=== PATIENT | female | born 1985 | race Caucasian/White ===

== ENCOUNTER 2025-09-20 17:51 | Inpatient (IN) | payer MEDICARE, MEDICAID ==
[~2025-09-20] VITALS: Ht 152.4 cm; Wt 60.3 kg
[2025-09-20 18:16] LABS: MEAN PLATELET VOLUME 8.1 FL (7.4-10.4); RED CELL DISTRIBUTION WIDTH 16.5 % (11.5-14.5)
[2025-09-20 18:32] LABS: CREATININE 0.53 MG/DL (0.40-0.90); TOTAL CARBON DIOXIDE 33.0 MMOL/L (24-32); eCRCL 104 ML/MIN; eGFR > 90 ML/MIN
[2025-09-20 18:36] LABS: ETHANOL < 10 MG/DL (<10)
[2025-09-20 19:32] LABS: LEUKOCYTE ESTERASE ,URINE LARGE (Neg); NITRITES, URINE POSITIVE (Neg); OCCULT BLOOD,URINE TRACE-INTACT (Neg); URINE HCG NEGATIVE (NEG)
[2025-09-20 19:33] LABS: UA COLLECTION TYPE VOIDED
[2025-09-20 19:41] LABS: SQUAMOUS EPITHELIAL CELL,UR FEW /LPF (FEW)
[2025-09-20 19:51] LABS: URINE AMPHETAMINE SCREEN NEGATIVE (Neg); URINE BARBITUATE SCREEN NEGATIVE (Neg); URINE BENZODIAZEPINES SCREEN NEGATIVE (Neg); URINE CANNABINOID SCREEN NEGATIVE (Neg); URINE COCAINE SCREEN NEGATIVE (Neg); URINE METHADONE SCREEN NEGATIVE (Neg); URINE OPIATE SCREEN NEGATIVE (Neg); URINE PHENCYCLIDINE SCREEN NEGATIVE (Neg)
--- NOTE | 2025-09-20 19:55 | Physician Documentation ---
History of Present Illness ~ Chief Complaint: 5150 Stated Complaint: Time Seen by MD: 19:54 Primary Medical Doctor: DARRELL Mode of Arrival: Dropped Off HPI Patient presents to the emergency room on a 5150 from [facility]. She reports suicidal ideation and auditory hallucinations. Currently she has no complaints. Medication Reconciliation Allergies: Coded Allergies: No Known Allergies (Unverified , 09/20/25) Review of Systems ROS All review of systems negative except as per HPI Physical Exam Vital Signs: Temperature: 98.3, Source: Oral, Heart Rate: 85, Respiratory Rate: 18, BP: 113/78, Pulse Oximetry: 97, Weight: 62.730 Oxygen Flow Rate: 0 Physical Exam General: Patient is awake, alert, cooperative in no acute distress Head: Normocephalic and atraumatic. Eyes: Conjunctival normal. EOMI. PERRL. ENT: Mucous membranes moist. Neck: Supple, trachea is midline. Chest: Clear to auscultation bilaterally without rales, rhonchi, or wheezes. There is no accessory muscle use or retractions. Cardiac: RRR without murmurs, gallops, or rubs. Psych: Cooperative, good eye contact, good affect Progress Results/Orders Results/Orders Vital Signs 09/20/25 09/20/25 17:53 18:14 Temp 98.3 Pulse 85 Resp 18 B/P (MAP) 113/78 Pulse Ox 97 O2 Flow Rate 0 Laboratory Tests Test 09/20/25 17:52 09/20/25 18:00 09/20/25 19:10 White Blood Count 10.1 Red Blood Count 5.10 Hemoglobin 12.7 Hematocrit 38.3 Mean Corpuscular Volume 75.1 L Mean Corpuscular Hemoglobin 24.9 L Mean Corpuscular Hemoglobin Concent 33.1 Red Cell Distribution Width 16.5 H Platelet Count 493 H Mean Platelet Volume 8.1 Neutrophils (%) (Auto) 57.0 Lymphocytes (%) (Auto) 20.1 L Monocytes (%) (Auto) 7.1 Eosinophils (%) (Auto) 14.9 H Basophils (%) (Auto) 0.9 Neutrophils # (Auto) 5.8 Lymphocytes # (Auto) 2.0 Monocytes # (Auto) 0.7 Eosinophils # (Auto) 1.5 H Basophils # (Auto) 0.1 CBC Comment Differential Total Cells Counted 100 Neutrophils % (Manual) 58.0 Lymphocytes % (Manual) 22.0 Monocytes % (Manual) 7.0 Eosinophils % (Manual) 13.0 H Platelet Estimate Increased Large Platelets Few Red Blood Cell Morphology Perf Basophilic Stippling Anisocytosis 1+ Microcytosis 1+ Elliptocytes Few Acanthocytes Few Sodium Level 142 Potassium Level 3.8 Chloride Level 103 Carbon Dioxide Level 33.0 H Anion Gap 6 L Blood Urea Nitrogen 6 L Creatinine 0.53 Estimated GFR/1.73 m2 > 90 BUN/Creatinine Ratio 11.3 Glucose Level 92 Calcium Level 9.3 Albumin 4.0 Thyroid Stimulating Hormone (TSH) 2.45 Chemistry Comments Ethyl Alcohol Level < 10 SARS-CoV-2 Antigen (Rapid) Negative Urine Specimen Description Voided Urine Color Yellow Urine Clarity Cloudy Urine pH 6.0 Urine Specific Marsing 1.010 Urine Protein Negative Urine Glucose (UA) Negative Urine Ketones Negative Urine Occult Blood Trace-intact Urine Nitrite Positive H Urine Bilirubin Negative Urine Urobilinogen 0.2 Urine Leukocyte Esterase Large H Urine RBC 0-2 Urine WBC 5-10 H Urine Squamous Epithelial Cells Few Urine Bacteria 4+ Volume Urine Centrifuged 10 ml Urine HCG, Qualitative Negative Urine Comment Urine Opiates Screen Negative Urine Methadone Screen Negative Urine Fentanyl Screen Negative Urine Barbiturates Screen Negative Urine Phencyclidine Screen Negative Urine Amphetamines Screen Negative Urine Benzodiazepines Screen Negative Urine Cocaine Screen Negative Urine Cannabinoids Screen Negative Drug Screen Comment Medical Decision Making Additional information obtaine: old records Findings Patient presents to the emergency room for evaluation on 5149 for SI and hallucinations. Labs reviewed and there was no evidence of major pathologic derangements and patient is medically cleared for mental health evaluation. Mild urinary tract infection noted Differential Dx:Considerations: Include: Alcohol abuse, Anxiety, Bipolar disorder, Conversion disorder, Depression, Encephaloathy, Homicidal, Panic disorder, Personality disorder, Schizophrenia, Substance abuse, Suicidal, Other Departure Disposition: 30 STILL A PATIENT Impression: Primary Impression: Suicidal ideation Additional Impression: Urinary tract infection Condition: Guarded Discharge Instructions: Urinary Tract Infection, Adult Referrals: NO PRIMARY CARE PROVIDER (PCP) Signature Scribe Signature: No scribe Attestation: The note accurately reflects work and decisions made by me.Lenny Nassar MD 09/20/25 19:59 LENNY NASSAR MD Sep 20, 2025 19:54
[2025-09-20 19:58] LABS: EOSINOPHILS % (MANUAL) 13.0 % (0-6); LYMPHOCYTES % (MANUAL) 22.0 % (21-51); MONOCYTES % (MANUAL) 7.0 % (2-12); NEUTROPHILS % (MANUAL) 58.0 % (42-75); PLATELET ESTIMATE INCREASED
[2025-09-20 19:59] LABS: ELLIPTOCYTES FEW; LARGE PLATELETS FEW
[2025-09-20] MEDS ORDERED: PALI3TAB PO (20:35)
[2025-09-20] MEDS ORDERED: TRAZ-251 PO (20:35)
[2025-09-21] MEDS: PALIPERIDONE 3 MG TAB.ER.24 PO SCH (10:35)
[2025-09-21] MEDS ORDERED: loperamide 2mg capsule PO PRN (15:40)
[2025-09-21] MEDS ORDERED: magnesium hydroxide 30ml (MOM) UD suspension PO PRN (15:40)
[2025-09-21] MEDS ORDERED: mag hydrox/Alum hydrox/simeth 30ml oral suspension PO PRN (15:40)
[2025-09-21] MEDS ORDERED: NICOTINE POLACRILEX 2 MG LOZENGE BC PRN (15:40)
[2025-09-21 15:59] VITALS: BP 106/63; PULSE 86; RESP 12; TEMP 97.9; O2SAT 97
[2025-09-21 16:00] VITALS: RESP 12
[2025-09-21 19:00] VITALS: RESP 16; O2SAT 98
[2025-09-21 20:00] VITALS: BP 104/63; PULSE 81; RESP 16; TEMP 97.8; O2SAT 98
[2025-09-22 07:00] VITALS: RESP 16; O2SAT 97
[2025-09-22 07:19] LABS: CHOL/HDL RATIO 4.5 (0.00-4.99); CREATININE 0.57 MG/DL (0.40-0.90); ETHANOL < 10 MG/DL (<10); LDL CHOLESTEROL 106 MG/DL (50-100); TOTAL CARBON DIOXIDE 28.6 MMOL/L (24-32); eCRCL 97 ML/MIN; eGFR > 90 ML/MIN
[2025-09-22 08:00] VITALS: BP 93/51; PULSE 72; RESP 16; TEMP 97.8; O2SAT 97
[2025-09-22] MEDS: nicotine 21mg patch - 24 hr TD SCH (08:00)
--- NOTE | 2025-09-22 09:12 | HISTORY AND PHYSICAL ---
History & Physical Providers to Admitted for exacerbation of schizophrenia bipolar disorder anxiety, otherwise No new complaint today, resting comfortably in the bed ~ History of Present Illness Reason for Admit\Complaint: Admitted for exacerbation of schizophrenia History of Present Illness This is a 39 years old white female with history of multiple medical problems including chronic schizophrenia bipolar disorder PTSD, remote history of seizure disorder, anxiety disorder autism spectrum, left knee injury scheduled for left knee surgery September 2025, increased platelets, under therapeutic lithium level, 0.2, was admitted to the mental health unit with a exacerbation of schizophrenia bipolar disorder Patient presents to the emergency room for evaluation on 5149 for SI and hallucinations. Labs reviewed and there was no evidence of major pathologic derangements and patient is medically cleared for mental health evaluation. Mild urinary tract infection noted. Patient was evaluated in emergency department was diagnosed with schizophrenia in exacerbation , UTI, and decision was made to admit patient for further evaluation and treatment. No additional complaint or concern. Allergies: Coded Allergies: No Known Allergies (Unverified , 09/20/25) Active prescriptions I reviewed reconciled Home Medications Home Medications Active Reported Invega (Paliperidone) 3 Mg Tab.er.24 1 Tab PO BID Trazodone HCl 50 Mg Tablet 1 Tab PO HS Past Medical History Past Medical History As in HPI Past Surgical History Surgical History Comment As in HPI Family History Family History: Family history was reviewed; no changes noted. Past Social History Social History Comment Deny illicit drug abuse tobacco alcohol use live with the family good social support Health Maintenance Health Maintenance Noncontributory ROS ROS Constitutional : no fever , no chills, or weakness. No diaphoresis. Allergic/Immunologic, no lymphadenopathy, no hives, no skin eruptions. Eyes, no recent visual changes, no eye pain, no photophobia. Ears, nose, mouth, throat, no sore throat, no nosebleed, no ear pain. Cardiovascular, no palpitations, skipped beats, chest pain, no peripheral edema, Respiratory, no dyspnea, orthopnea, cough, hemoptysis, chest wall pain. Gastrointestinal, no abdominal pain, nausea, vomiting, constipation or diarrhea. : no dysuria, hematuria, pelvic pain, urethral d/c. Endocrine, no polyuria, polydipsia, recent unintentional weight gain or loss. Hematologic/Lymphatic, no petechiae, no enlarged lymph nodes, no bone pain. Integumentary, no rash, no skin lesions, Musculoskeletal, no muscle aches, or pain, no muscle cramps, no recent change in gait Neurological, no dizziness, no headache, no syncope, no paresthesia. Psychiatric, no delusions, visual hallucinations, or hearing hallucinations. ROS - in rest is as in HPI. Exam Vitals: Vital Signs Date Time Temp Pulse Resp B/P (MAP) Pulse Ox O2 Delivery O2 Flow Rate FiO2 09/21/25 20:00 97.8 81 16 104/63 (77) 98 Room Air 09/21/25 06:18 0 Vital signs, stable ,afebrile. Pulse Oximetry reflects adequate oxygenation. BMI is 46, weight 60 kg General: well developed, well nourished. Awake , alert, and oriented x4, resting comfortably in the bed, in no acute distress . Skin: Warm, dry, no pallor, no rash or petechiae. HEENT: Atraumatic, normocephalic, EOMI, anicteric sclera B; pink conjunctiva; PERRLA, normal oropharynx, moist oral and nasal mucosa. Tympanic membrane , nose , throat clear. Neck: Trachea midline. Supple, full range of motion, no JVD, bruit , hepatojugular reflex , lymphadenopathy or masses, or other lesions Cardiac: Regular rhythm, regular rate no murmurs, rubs, or gallops. Normal S1 and S2, no S3 noticed. PMI is normal. Respiratory: Equal breath sounds bilaterally, no tachypnea; lungs clear to auscultation bilaterally, no wheezing ,rub or rales, or crackles. Chest wall is symmetric and without deformity. No signs of trauma. Chest wall is nontender. No signs of respiratory distress. Resonance is normal upon percussion bilaterally. Gastrointestinal: Abdomen symmetric, non-distended, soft, non-tender, normal bowel sounds x4 quadrant, normoactive, no hepatosplenomegaly , no masses , no bruit, no flank pain bilaterally. No voluntary guarding, rebound, or rigidity. No tenderness to percussion. No pulsatile masses. Equal femoral pulses. No Kieth's sign or McBurney point tenderness. Back; no CVA tenderness bilaterally, no deformities. Neck and back are without deformity as well. No tenderness noted on palpation of the spinous processes. Spinous processes are midline. Cervical, thoracic, and lumbar paraspinal muscles are not tender and are without spasm. : Deferred by patient Musculoskeletal: Extremities, normal range of motion, non-tender, muscle strength 5/5 x 4. Negative Homans signs bilaterally on lower extremity. Distal pulses full symmetrical, no clubbing, cyanosis , edema. Neurological: Speech is clear, alert, and oriented x 4. No motor or sensory deficit, deep tendon reflexes normal, cerebellar intact. Cranial nerves II-XII intact. Psych: Alert and or appropriate, normal affect. Vascular: Good distal pulses, which are equal x4; capillary refill less than 2 seconds. Lymphatic, no lymphadenopathy. Diagnostic Data Last Recorded Lab Results: 09/20/25 1752 09/22/25 0632 Advance Care Planning Advanced Care plannin - 30 Minutes Additional Plan Assessment/plan Chronic schizophrenia in exacerbation, bipolar disorder, PTSD, anxiety disorder, autism spectrum, Treatment per Psychiatric team UTI, on antibiotics Under therapeutic lithium level, treatment per Psychiatric team Thrombocytosis, mild we will repeat CBC In one week additional comorbidities, remote history of seizure, left knee injury scheduled for surgery in September 2025, Reconciled home medications DVT gastropathy prophylaxis addressed Hospitalist team we will follow patient per hospital protocol Sepsis Screening Reassessment Date: Sep 22, 2025 Date of Service: Sep 22, 2025 Billing Provider: RITESH MUÑIZ MD Common Visit Codes: 72627-[id number] INP/OBS CARE (MOD) RITESH MUÑIZ MD Sep 22, 2025 09:12
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
[2025-09-22 19:00] VITALS: RESP 18; O2SAT 99
[2025-09-22 20:00] VITALS: BP 102/72; PULSE 82; RESP 18; TEMP 98; O2SAT 99
[2025-09-22] MEDS: divalproex sod 250mg ER (24-hour) tablet PO SCH (21:16)
[2025-09-23 07:31] VITALS: RESP 18; O2SAT 97
[2025-09-23 08:00] VITALS: BP 105/71; PULSE 88; RESP 16; TEMP 98.6; O2SAT 99
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
[2025-09-23 19:42] VITALS: BP 113/71; PULSE 96; RESP 16; TEMP 97.3; O2SAT 98
[2025-09-23 19:44] VITALS: RESP 16; O2SAT 98
[2025-09-23] MEDS: divalproex sod 250mg ER (24-hour) tablet PO SCH (20:39)
[2025-09-24 07:00] VITALS: RESP 16; O2SAT 94
[2025-09-24 08:00] VITALS: BP 109/67; PULSE 84; RESP 16; TEMP 97.7; O2SAT 94
[2025-09-24] MEDS: IVERMECTIN 117 GM LOTION TP ONE (11:05)
--- NOTE | 2025-09-24 15:48 | PROGRESS NOTE ---
Daily Progress Note Providers to CC ~ Antibiotic Timeout Antibiotic Ordered?: No Subjective This is the hospitalist progress note on patients hospitalized at [facility] psychiatric [place]/ The [facility] behavioral health. I was informed by nursing staff that lice was found on the patient's hair and now the patient is an isolation and received ivermectin. The patient has no acute medical complaints or concerns otherwise none were voiced by nursing staff Objective Vital Signs Date Time Temp Pulse Resp B/P (MAP) Pulse Ox O2 Delivery O2 Flow Rate FiO2 09/24/25 08:00 97.7 84 16 109/67 (81) 94 Room Air 09/22/25 07:00 0.0 Result Diagram: 09/20/25 1752 09/22/25 0632 Gen no acute distress, alert and resting in bed Resp no dyspnea or respiratory distress appreciated. Problem\Assessment\Plan Problems/Diagnosis: (1) Schizoaffective disorder # schizophrenia # autism spectrum # Suicidal ideation Followed by Psychiatry # head lice On isolation precautions Received ivermectin. # UTI likely secondary to cystitis. Has a received four days of cephalexin that is we will discontinue antibiotics Urine was not sent for culture and sensitivity. Hospitalist service will continue to follow the patient while hospitalized at [facility] for behavioral health Date of Service: Sep 24, 2025 Billing Provider: BAKARI MOY DO Common Visit Codes: [id number] INP/OBS CARE(LOW) Problem Qualifiers (1) Schizoaffective disorder: Qualified Codes: F25.0 - Schizoaffective disorder, bipolar type BAKARI MOY DO Sep 24, 2025 15:48
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
[2025-09-24 19:00] VITALS: BP 105/66; PULSE 101; RESP 16; TEMP 97.7; O2SAT 98
[2025-09-25 07:20] VITALS: BP 109/76; PULSE 124; RESP 16; TEMP 97.7; O2SAT 99
--- NOTE | 2025-09-25 07:23 | ELECTROCARDIOGRAPH REPORT ---
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 NIXON Cabral Measurements Intervals [place] Rate: 79 P: 49 HI: 134 QRS: -19 QRSD: 94 T: 41 QT: 378 QTc: 434 Interpretive Statements Sinus rhythm Borderline left axis deviation RSR' in V1 or V2, probably normal variant Baseline wander in lead(s) V2,V3 Electronically Signed On 09-25-2025 18:49:[address] NIXON Cabral Please click the below link to view image of tracing.
[2025-09-25 07:40] VITALS: PULSE 79
[2025-09-25 09:09] VITALS: RESP 18; O2SAT 99
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
[2025-09-25 19:00] VITALS: BP 110/66; PULSE 103; RESP 16; TEMP 97.6; O2SAT 99
[2025-09-26 07:00] VITALS: RESP 16; O2SAT 99
[2025-09-26 08:00] VITALS: BP 130/82; PULSE 100; RESP 16; TEMP 97.5; O2SAT 99
[2025-09-26 08:20] LABS: CLOZ+NORCLOZ TOTAL <40 ng/mL (.); NORCLOZAPINE, SERUM <20 ng/mL (Not Estab.)
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
--- NOTE | 2025-09-26 18:34 | PROGRESS NOTE- Residence ---
Progress Note - Resident Providers to CC Resident Creating Document: FESTUS RIVAS, RES ~ Antibiotic Timeout Antibiotic Ordered?: No Subjective Patient was seen and examined at bedside, no acute overnight symptoms. Objective Vital Signs Date Time Temp Pulse Resp B/P (MAP) Pulse Ox O2 Delivery O2 Flow Rate FiO2 09/26/25 08:00 97.5 100 16 130/82 (98) 99 Room Air 09/22/25 07:00 0.0 Result Diagram: 09/22/25 0632 General: Awake, oriented to person, place and time HEENT: Conjunctive are pale, sclerae clear, no icterus, pupil is equal in both sides, reactive to light, no ear discharge, no pharyngeal erythema or an edema. Neck: Supple, no JVD, no lymphadenopathy and thyromegaly. Chest: Equal air entry on both lungs, no additional sounds no rhonchi no wheezing at the moment. Cardiovascular: S1-S2 regular sinus rhythm and, regular rate, no gallops, no rubs, no murmurs Abdomen: No visible peristalsis, Bowel sounds present on auscultation, soft, no tenderness, no guarding, no rigidity. Extremities: No pedal edema, no cyanosis Neurologic: No FND Musculoskeletal: Normal Skin: Warm and dry. Dry oral mucosa. Advance Care Planning Advanced Care plannin - 30 Minutes Plan Plan - Schizophrenia - Autism spectrum - Suicidal ideation Followed by Psychiatry - Possible hyperpituitarism versus hyperprolactinemia secondary to medication use Patient was on risperidone, probably increased prolactin Prolactin levels on 09/20, [address] Or[address] repeat prolactin levels CT head ordered Acth, LH, FSH ordered (TSH levels are high at 4.78) Thyroid panel ordered HCG negative - Head lice On isolation precautions Received ivermectin. - UTI likely secondary to cystitis. Has a received four days of cephalexin that is we will discontinue antibiotics Urine analysis positive for UTI Was not sent for cultures - Possible iron-deficiency low MCV and high RDW Iron studies ordered Hospitalist service will continue to follow the patient Date of Service: Sep 26, 2025 Billing Provider: SUPRIYA WILLS MD Common Visit Codes: [id number] INP/OBS CARE(MOD) FESTUS RIVAS, RES Sep 26, 2025 18:34 SUPRIYA WILLS MD Oct 03, 2025 06:47
[2025-09-26 19:00] VITALS: RESP 16; O2SAT 98
[2025-09-26 19:28] VITALS: BP 107/70; PULSE 98; RESP 16; TEMP 97.4; O2SAT 98
[2025-09-26 20:00] VITALS: PULSE 60
[2025-09-27 07:30] VITALS: BP 118/60; PULSE 90; RESP 16; TEMP 98.1; O2SAT 97
[2025-09-27 12:50] LABS: % IRON SATURATION 14 % (11-46)
--- NOTE | 2025-09-27 15:00 | RADIOLOGY REPORT ---
CLINICAL HISTORY: Evaluate for prolactinoma. TECHNIQUE: Helical scanning was performed of the head from the skull base to the vertex. Multiplanar reconstructions were performed. This exam was performed according to our departmental dose optimization program. Up-to-date CT equipment and radiation dose reduction techniques are utilized as appropriate. CTDI 71 DLP 1297 COMPARISON: None FINDINGS: There is no evidence for acute intracranial hemorrhage, acute ischemic changes, mass, mass effect, or extra-axial fluid collection. There is no hydrocephalus or midline shift. There is no effacement of the cerebral sulci and basal subarachnoid cisterns. The bates-white matter differentiation is well maintained. No clear pituitary lesion is seen on CT. With better assessment is warranted, pituitary MRI is suggested. The imaged paranasal sinuses demonstrate minimal scattered mucoperiosteal thickening. IMPRESSION: NO ACUTE INTRACRANIAL ABNORMALITY SEEN.
[2025-09-27 19:00] VITALS: RESP 16; O2SAT 98
[2025-09-27 20:00] VITALS: BP 112/74; PULSE 92; RESP 16; TEMP 97.7; O2SAT 98
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
[2025-09-28 07:30] VITALS: BP 118/73; PULSE 86; RESP 16; TEMP 98.2; O2SAT 92
[2025-09-28 09:18] LABS: FSH, SERUM 7.4 mIU/mL (.); LUTEINIZING HORMONE 8.2 mIU/mL (.); PROLACTIN 187.0 ng/mL (4.8-33.4); TRIIODOTHYRONINE (T3) 119.0 ng/dL (71-180)
[2025-09-28] MEDS ORDERED: DIVA250T8 PO (14:05)
[2025-09-28] MEDS ORDERED: TRAZ-251 PO (14:05)
[2025-09-28] MEDS ORDERED: CEPH250C PO (14:05)
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
--- NOTE | 2025-09-28 19:16 | PROGRESS NOTE ---
Daily Progress Note Providers to CC ~ Antibiotic Timeout Antibiotic Ordered?: No Subjective This is the hospitalist progress note on patients hospitalized at [facility]. The patient has since been discharged I evaluated the patient she was standing on the [place] due to lice. She did not have any acute medical complaints this juncture Objective Vital Signs Date Time Temp Pulse Resp B/P (MAP) Pulse Ox O2 Delivery O2 Flow Rate FiO2 09/28/25 07:30 98.2 86 16 118/73 (88) 92 Room Air 0.0 Gen no acute distress, alert and resting in bed Resp no dyspnea or respiratory distress appreciated. Problem\Assessment\Plan Problems/Diagnosis: (1) Schizoaffective disorder # schizophrenia # autism spectrum # Suicidal ideation Followed by Psychiatry # head lice On isolation precautions Received ivermectin. # UTI likely secondary to cystitis. Has a received four days of cephalexin that is we will discontinue antibiotics Urine was not sent for culture and sensitivity. Date of Service: Sep 28, 2025 Billing Provider: BAKARI MOY DO Common Visit Codes: [id number] INP/OBS CARE(LOW) Problem Qualifiers (1) Schizoaffective disorder: Qualified Codes: F25.0 - Schizoaffective disorder, bipolar type BAKARI MOY DO Sep 28, 2025 19:16
[2025-09-30 09:21] LABS: ACTH, PLASMA 70.1 pg/mL (7.2-63.3)
== END 2025-09-28 16:12 | disposition home or self-care (01) | DRG 885 ==
LOC: ER 17:52 → UNDOADMIN 09-21 13:00 → ADULT MH 09-21 13:00
PROVIDERS: ADMIT Psychiatry & Neurology Psychiatry; ATTEND Psychiatry & Neurology Psychiatry
PROC: GZHZZZZ Group Psychotherapy (ICD-10-PCS; principal; 2025-09-22)
DX: F25.0 Schizoaffective disorder, bipolar type (principal); R45.851 Suicidal ideations; F84.0 Autistic disorder; F43.10 Post-traumatic stress disorder, unspecified; F41.9 Anxiety disorder, unspecified; F90.9 Attention-deficit hyperactivity disorder, unspecified type; Z20.822 Contact with and (suspected) exposure to COVID-19; G40.909 Epilepsy, unspecified, not intractable, without status epilepticus; D75.839 Thrombocytosis, unspecified; N30.90 Cystitis, unspecified without hematuria; B85.2 Pediculosis, unspecified
CPT/HCPCS: 36415; 70450; 80048; 80053; 80061; 80178; 80183; 80305; 80320; 81001; 81025; 82024; 82248; 82728; 83001; 83002; 83036; 83540; 83550; 84146; 84439; 84443; 84480; 85007; 85025; 87081; 87811; 93005; 99285